=== PATIENT | male | born 1970 | race Caucasian/White ===

== ENCOUNTER → 2017-03-02 | Outpatient (REF) | LOC: WSOH 13:55 | DX: Z01.10 Encounter for examination of ears and hearing without abnormal findings (principal) ==

== ENCOUNTER → 2018-03-06 | Outpatient (CLI) | payer BC | LOC: COL.RAD 12:06 | DX: M51.26 Other intervertebral disc displacement, lumbar region (principal); M48.061 Spinal stenosis, lumbar region without neurogenic claudication; M21.372 Foot drop, left foot ==